=== PATIENT | male | born 1990 | race Caucasian/White ===

== ENCOUNTER 2017-06-26 22:38 | Emergency (ER) | payer SELFPAY ==
[~2017-06-26] VITALS: Ht 177.8 cm; Wt 72.6 kg
[2017-06-26 22:38] VITALS: BP_SYST 109
[2017-06-26 22:48] VITALS: BP_SYST 109
== END 2017-06-26 22:48 ==
LOC: SED 22:38
DX: S80.211A Abrasion, right knee, initial encounter (principal); F12.10 Cannabis abuse, uncomplicated; W01.0XXA Fall on same level from slipping, tripping and stumbling without subsequent striking against object, initial encounter; Y93.89 Activity, other specified; Y92.89 Other specified places as the place of occurrence of the external cause; Y99.8 Other external cause status
CPT/HCPCS: 99283